=== PATIENT | female | born 1955 | race Caucasian/White ===

== ENCOUNTER → 2017-01-22 | Outpatient (CLI) | payer OTHER ==
[~2017-01-22] MED LIST: ESOM20SU PO; HERBS; OXYC-197 PO; OXYCODONE; PRD50T PO; RNT150T PO; VITAMINS; [UNRECOGNIZED DRUG - OTHER]; flexeril PO
--- NOTE | 2017-01-22 17:52 | Diagnostic Imaging Report ---
Bilateral diagnostic mammogram. COMPARISON: 08/26/15. INDICATION: Left breast pain. The current study was also evaluated with a Computer Aided Detection (CAD) system. FINDINGS: There are scattered fibroglandular densities seen. In the upper aspect of the left breast specifically on the true lateral view, there is a 1 cm asymmetry that appears less prominent on the MLO projection with no definite correlate on the CC view. This is evaluated with focal compression view which demonstrates persistent asymmetry. The right breast demonstrates no definite change. IMPRESSION: Upper left breast asymmetry only seen in the true lateral view, persistent on focal compression view. Ultrasound evaluation is pending. ACR BI-RADS Category 0: Incomplete. (Needs additional imaging evaluation). Result letter will be mailed to the patient. Note: At least 10% of breast cancer is not imaged by mammography. Dictated by: Dictated on workstation # [id number]
--- NOTE | 2017-01-22 18:41 | Diagnostic Imaging Report ---
EXAMINATION: Left breast ultrasound. INDICATION: Asymmetry in the upper aspect of the left breast. Breast pain. FINDINGS: The four quadrants and retroareolar region of the left breast were scanned. There is an indeterminate 0.7 x 0.2 x 0.5 cm hypoechoic lobulated lesion, with no shadowing or internal vascularity with color Doppler, identified at the 11 o'clock zone, 7 cm from the nipple. This may explain the asymmetry on mammography. No other lesion is identified in the rest of the left breast tissue. IMPRESSION: Indeterminate 0.7 cm hypoechoic lesion at 11 o'clock zone, 7 cm from the nipple, may correlate with the mammographic asymmetry seen. Followup study at four months with ultrasound and mammogram is an acceptable alternative given the low suspicion and this is the patient's preference. An ultrasound-guided biopsy could also be performed, alternatively. The results were discussed with the patient. ACR BI-RADS Category 3: Probably benign findings. Result letter will be mailed to the patient. Note: At least 10% of breast cancer is not imaged by mammography. Dictated by: Dictated on workstation # [id number]
== END ==
LOC: RAD 13:54
PROVIDERS: ATTEND Family Medicine
DX: N64.4 Mastodynia (principal)
CPT/HCPCS: 77066

== ENCOUNTER → 2017-06-14 | Outpatient (CLI) | payer OTHER ==
--- NOTE | 2017-06-14 19:48 | Diagnostic Imaging Report ---
EXAMINATION: Ultrasound of the left breast. INDICATION: Follow-up exam. FINDINGS: The diagnostic mammogram performed on 01/22/2017 noted an asymmetric density in the superior aspect of the left breast. The ultrasound exam performed on the same day did note a 0.7 x 0.2 x 0.5 cm hypoechoic lobulated lesion in the 11 o'clock position of the breast roughly 7 cm from the nipple. This is felt to be most likely a benign process. On the diagnostic mammogram performed earlier today, there was no evidence for malignancy. On this study, the hypoechoic lesion in the 11 o'clock position of the left breast is no longer visualized. I suspect that this was a cyst which has subsequently resolved. There is no primary or secondary sign of malignancy noted otherwise. IMPRESSION: 1. The suspected cyst in the 11 o'clock position of the left breast seen previously is no longer evident. There is no evidence for malignancy. 2. The patient should have her annual bilateral screening mammogram on schedule in six months for continued evaluation. ACR BI-RADS Category 1: Negative. Dictated by: Dictated on workstation # [id number]
--- NOTE | 2017-06-15 10:04 | Diagnostic Imaging Report ---
Unilateral diagnostic left mammogram. INDICATION: Followup exam. The previous mammogram of 01/22/2017, noted a 1-cm asymmetry in the superior aspect of the left breast on the MLO view. The ultrasound examination of this area performed on the same day noted a 0.7-cm hypoechoic lesion in the 11 o'clock position. This finding was felt to be secondary to a benign process. On this exam the area of increased density in the superior aspect of the left breast on the MLO view is much less conspicuous. The overall appearance of the left breast itself has not changed adversely. There is no primary or secondary sign of malignancy noted. IMPRESSION: There is no evidence for malignancy. Ultrasound is pending for further study. ACR BI-RADS Category 0: Incomplete. (Needs additional imaging evaluation). Result letter will be mailed to the patient. Note: At least 10% of breast cancer is not imaged by mammography. Dictated by: Dictated on workstation # [id number]
== END ==
LOC: RAD 13:51
PROVIDERS: ATTEND Nurse Practitioner Family
DX: R92.8 Other abnormal and inconclusive findings on diagnostic imaging of breast (principal)
CPT/HCPCS: 76641

== ENCOUNTER → 2017-07-25 | Outpatient (CLI) | payer OTHER ==
--- NOTE | 2017-07-25 17:57 | Diagnostic Imaging Report ---
TECHNIQUE: Multiplanar, multisequence non contrast-enhanced MRI of the left lower extremity was accomplished. INDICATION: No prior history of surgery. Patient has left posterior ankle pain with no known injury. Possible Achilles tendon injury. Prior history of right Achilles injury and surgery. EXAMINATION: MRI of the left lower extremity, 07/25/2017. FINDINGS: There is marked diffuse enlargement of the Achilles tendon just posterior to the level of the posterior malleolus. Internal areas of high signal within the medial aspect of the Achilles tendon at and above the level of the posterior malleolus also noted. These are somewhat linear in appearance and likely represent a focal intrasubstance partial tear. No discontinuity is appreciated. There is underlying edema throughout Kager's fat pad which could be reactive. There is a small amount of fluid in the retrocalcaneal bursa. There is also fluid within the posterior subtalar joint. Plantar fascia is intact. The peroneal tendons are also intact. The flexor and extensor tendons appear unremarkable. The anterior talofibular ligament is intact. The anterior and posterior tibiofibular ligaments are also intact. The deltoid ligament appears unremarkable. Edema along the visualized distal flexor hallucis longus muscle is noted which is a nonspecific finding, perhaps reactive or due to mild focal strain or myositis. The osseous structures demonstrate no acute abnormalities. IMPRESSION: 1. Diffuse fusiform enlargement of the distal Achilles tendon with internal areas of high signal, likely due to a small intrasubstance tear superimposed upon tendinosis. Followup is recommended to assure complete resolution of these findings and exclude any underlying lesions felt to be unlikely but should be followed. 2. Likely reactive retrocalcaneal bursal fluid perhaps due to bursitis as well as edema within Kager's fat pad. 3. Ligaments and tendons otherwise intact and unremarkable. Other findings as above. Dictated by: Dictated on workstation # [id number]
== END ==
LOC: RAD 10:04
PROVIDERS: ATTEND Orthopaedic Surgery
DX: M76.62 Achilles tendinitis, left leg (principal)
CPT/HCPCS: 73721

== ENCOUNTER 2018-06-27 13:24 | Outpatient (RCR) | payer OTHER ==
[~2018-06-27 13:24] MED LIST changes: -OXYC-197 PO; +OXYC1TAB87 PO
== END 2018-07-07 | disposition home or self-care (01) ==
PROVIDERS: ATTEND Nurse Practitioner Family
DX: M19.91 Primary osteoarthritis, unspecified site (principal); M51.27 Other intervertebral disc displacement, lumbosacral region

== ENCOUNTER → 2018-08-26 | Outpatient (CLI) | payer OTHER ==
--- NOTE | 2018-08-26 21:54 | Diagnostic Imaging Report ---
PROCEDURE: US Thyroid. TECHNIQUE: Multiple real-time grayscale images were obtained of the thyroid in various projections. INDICATION: Left neck mass. Thyroid ultrasound. Right lobe of thyroid measures 3.2 x 2.2 x 1.6 cm. Left lobe measures 4.1 x 1.8 x 1.5 cm. There are no masses seen in either thyroid. The thyroid has heterogeneous echotexture that could be due to thyroiditis. Survey of the neck does not show any pathologic masses or fluid collections. IMPRESSION: Abnormal echotexture of the thyroid could be due to thyroiditis. There is no discrete mass seen in the thyroid or neck. Dictated by: Dictated on workstation # [id number]
== END ==
LOC: RAD 15:00
PROVIDERS: ATTEND Nurse Practitioner Family
DX: E01.0 Iodine-deficiency related diffuse (endemic) goiter (principal)
CPT/HCPCS: 76536

== ENCOUNTER → 2018-10-07 | Outpatient (RCR) | payer OTHER | END | disposition home or self-care (01) | PROVIDERS: ATTEND Nurse Practitioner Family | DX: M19.91 Primary osteoarthritis, unspecified site (principal); M51.27 Other intervertebral disc displacement, lumbosacral region ==

== ENCOUNTER → 2018-11-06 | Outpatient (CLI) | payer OTHER ==
--- NOTE | 2018-11-06 19:10 | Diagnostic Imaging Report ---
INDICATION: Screening. EXAMINATION: Digital mammogram bilateral screening with 3-D tomosynthesis. Study was compared to prior exams of 06/14/2017, 01/22/2017 and 08/26/2015. At this time, there are no current complaints. The current study was also evaluated with a Computer Aided Detection (CAD) system. FINDINGS: There are scattered fibroglandular densities in both breasts which could obscure a lesion. Overall, there does not appear to have been any significant change when compared to the prior exam. No primary or secondary sign of malignancy is noted. IMPRESSION: There is no radiographic evidence for malignancy. ACR BI-RADS Category 1: Negative. Result letter will be mailed to the patient. Note: At least 10% of breast cancer is not imaged by mammography. Dictated on workstation # [id number]
== END ==
LOC: RAD 07:58
PROVIDERS: ATTEND Internal Medicine
DX: Z12.31 Encounter for screening mammogram for malignant neoplasm of breast (principal)
CPT/HCPCS: 77067

== ENCOUNTER 2018-11-08 08:30 | Outpatient (RCR) | payer OTHER | END 2018-11-08 10:47 | disposition home or self-care (01) | PROVIDERS: ATTEND Nurse Practitioner Family | DX: M19.91 Primary osteoarthritis, unspecified site (principal); M51.27 Other intervertebral disc displacement, lumbosacral region ==

== ENCOUNTER → 2018-12-31 | Outpatient (CLI) | payer OTHER ==
--- NOTE | 2018-12-31 15:12 | Diagnostic Imaging Report ---
PROCEDURE: MRI lumbar spine. TECHNIQUE: Multiplanar, multisequence MRI of the lumbar spine was performed without contrast. INDICATION: Degenerative disc disease. COMPARISON: Correlation is made with prior MRI of the lumbar spine from 01/31/2016. FINDINGS: Curvature of the lumbar spine is normal. There is minimal anterolisthesis of L4 on L5. Vertebral body heights are maintained. No acute compression fracture is identified. No geographic marrow lesion is identified. Generalized degenerative disc disease is seen with variable disc space narrowing and desiccation. The conus is unremarkable at the L1-2 level. T12-L1: Central canal is patent. There does appear to be moderate neural foramina narrowing on the left with more significant neural foraminal narrowing on the right due to endplate osteophytes. L1-2: Disc/osteophyte complex is seen. Central canal remains patent but there does appear to be significant bilateral neural foramina and lateral recess stenosis. L2-3: Hypertrophic facet changes are noted. There is some trefoil configuration to the sac but the AP dimensions of the thecal sac remain within normal limits. There is bilateral lateral recess stenosis. Significant left and mild right neural foraminal stenosis is seen. L3-4: Hypertrophic facet changes and ligamentous thickening is noted. Broad-based disc/osteophyte complex is present. There is mild narrowing of the canal. There is significant narrowing of the bilateral lateral recesses with moderate bilateral neural foraminal stenosis. L4-5: Bulky hypertrophic facet changes with ligamentous thickening and broad-based disc/osteophyte complexes noted. There is very severe trefoil stenosis to the central canal. Significant bilateral lateral recess stenosis is seen with significant left and moderate right neural foraminal stenosis. L5-S1: Bulky hypertrophic facet changes with ligamentous thickening and broad-based disc/osteophyte complex is noted resulting in severe central canal stenosis. There is also severe bilateral lateral recess stenosis with severe left and mild right neural foraminal stenosis. Paraspinous tissues demonstrate renal sinus cysts bilaterally. IMPRESSION: Multilevel lumbar spondylosis with multilevel central canal, lateral recess and neural foraminal stenosis described level by level above. This is most severe at the L4-5 and L5-S1 levels. No acute compression fracture is seen. Dictated by: Dictated on workstation # [id number]
== END ==
LOC: RAD 13:54
PROVIDERS: ATTEND Nurse Practitioner Family
DX: M48.07 Spinal stenosis, lumbosacral region (principal); M47.817 Spondylosis without myelopathy or radiculopathy, lumbosacral region; M51.36 Other intervertebral disc degeneration, lumbar region; M25.78 Osteophyte, vertebrae
CPT/HCPCS: 72148

== ENCOUNTER → 2019-02-20 | Outpatient (CLI) | payer OTHER ==
--- NOTE | 2019-02-20 14:54 | Diagnostic Imaging Report ---
PROCEDURE: US Bilateral lower extremity arterial. TECHNIQUE: Multiple real-time grayscale images are obtained through both lower extremity arterial systems with color Doppler imaging and color Doppler spectral analysis. INDICATION: Left leg pain and weakness. FINDINGS: Predominantly triphasic waveforms are identified throughout both lower extremity arterial systems from the common femoral to the popliteal arteries. There are biphasic waveforms at the ankle involving the posterior tibial and dorsalis pedis arteries. Velocities are symmetric bilaterally. No velocity elevation or stenosis is seen. There is no occlusion. IMPRESSION: Unremarkable bilateral lower extremity arterial Doppler. Dictated by: Dictated on workstation # [id number]
--- NOTE | 2019-02-20 17:50 | Diagnostic Imaging Report ---
INDICATION: Left leg pain. FINDINGS: Segmental pressures were obtained. Ankle-brachial index on the right is 1.16 and on the left 1.16. IMPRESSION: Normal ankle-brachial indices. Dictated by: Dictated on workstation # [id number]
== END ==
LOC: RAD 11:33
PROVIDERS: ATTEND Neurological Surgery
DX: M62.81 Muscle weakness (generalized) (principal); M79.605 Pain in left leg
CPT/HCPCS: 93922; 93925

== ENCOUNTER → 2020-11-11 | Outpatient (CLI) | payer MEDICARE ==
--- NOTE | 2020-11-11 10:15 | Diagnostic Imaging Report ---
INDICATION: Lateral left breast pain. COMPARISON is made with prior mammograms 11/06/2018 and 01/22/2017. 2-D and 3-D bilateral screening mammography was performed with CAD. Scattered fibroglandular densities are identified bilaterally. No mass or malignant appearing microcalcifications are seen. Axillae are unremarkable. IMPRESSION: BI-RADS 0 No mammographic features suspicious for malignancy are identified. Even so, sonographic interrogation of the area of pain in the lateral left breast is recommended and will be performed today. ACR BI-RADS Category 0: Incomplete. (Needs additional imaging evaluation). Result letter will be mailed to the patient. Note: At least 10% of breast cancer is not imaged by mammography. Dictated by: Dictated on workstation # [id number]
--- NOTE | 2020-11-11 10:41 | Diagnostic Imaging Report ---
INDICATION: Left breast pain. CORRELATION is made with diagnostic mammogram earlier the same day. Sonographic interrogation of the lateral aspect of left breast in the area of pain was performed. No sonographic abnormality is detected. No solid or cystic mass is detected. IMPRESSION: BI-RADS Category 1. No sonographic abnormality is identified. The patient may return to routine annual screening mammography. Dictated by: Dictated on workstation # [id number]
== END ==
LOC: RAD 09:45
PROVIDERS: ATTEND Nurse Practitioner Family
DX: N64.4 Mastodynia (principal)
CPT/HCPCS: 76642; 77066; G0279; 77062

== ENCOUNTER 2021-02-03 08:29 | Outpatient (RCR) | payer MEDICARE, OTHER | END 2021-02-21 | disposition home or self-care (01) | PROVIDERS: ATTEND Nurse Practitioner Family | DX: N81.10 Cystocele, unspecified (principal); N81.6 Rectocele ==

== ENCOUNTER → 2021-11-22 | Outpatient (CLI) | payer MEDICARE, OTHER ==
--- NOTE | 2021-11-22 15:24 | Diagnostic Imaging Report ---
EXAMINATION: Digital mammogram bilateral screening with CAD. INDICATION: Screening. COMPARISON: This study was compared to the prior exams of 11/11/2020, 11/06/2018, 06/14/2017, and 01/22/2017. PERSONAL HISTORY: At this time, there are no current complaints. FINDINGS: There are scattered fibroglandular densities in both breasts which could obscure a lesion. Overall, there does not appear to have been any significant change when compared to the prior exam. No primary or secondary sign of malignancy is noted. IMPRESSION: There is no radiographic evidence for malignancy. ACR BI-RADS Category 1: Negative. Result letter will be mailed to the patient. Note: At least 10% of breast cancer is not imaged by mammography. Dictated by: Dictated on workstation # [id number]
--- NOTE | 2021-11-22 15:32 | Diagnostic Imaging Report ---
INDICATION: Postmenopausal. COMPARISON: 09/23/2015. FINDINGS: The bone mineral density of the spine, hips, and femoral necks was measured. The total T score for the spine is 1.5. On the prior exam, the T score was 2.0. The total T score for the left hip is -0.6 and for the right -0.5. On the prior exam, the respective T-scores were 0.0 and 0.2. The T score for the left femoral neck is -1.2 and for the right -1.4. On the prior study, the respective T scores were -1.0 and -0.8. AP Spine L1-L4: [BMD (g/cm2): 1.375] [T-Score: 1.5] [Z-Score: 1.9] [BMD Previous: 1.442] [BMD % Change: -4.6] LT Hip Neck: [BMD (g/cm2): 0.873] [T-Score: -1.2] [Z-Score: -0.4] LT Hip Total: [BMD (g/cm2):0.934] [T-Score:-0.6] [Z-Score: -0.2] [BMD Previous: 1.007] [BMD % Change: -7.2] RT Hip Neck: [BMD (g/cm2):0.837] [T-Score:-1.4] [Z-Score:-0.7] RT Hip Total: [BMD (g/cm2):0.942] [T-score:-0.5] [Z-Score:-0.1] [BMD Previous:1.035] [BMD % Change:-9.0] *Indicates significant change from prior examination based on 95% confidence level. World Health Organization criteria for BMD interpretation classify patients as Normal (T-score at or above -1.0), Osteopenic (T-score between -1.0 and -2.5) or Osteoporotic (T-score at or below -2.5). LIMITATIONS AND MODIFICATION: None. FRACTURE RISK (FRAX SCORE): The ten year probability of (%): Major Osteoporotic Fracture: [NA] Hip Fracture: [NA] IMPRESSION: 1. The bone mineral density of the spine and hips has decreased but the T score values remain within normal limits. 2. However, there has also been a decrease in the bone mineral density of the femoral necks and these T score values now indicate osteopenia. 3. See below National Osteoporosis Foundation guidelines on when to potentially initiate pharmacologic therapy. Based on the National Osteoporosis Foundation Guidelines, pharmacologic treatment should be initiated in any of the following, unless clinical conditions suggest otherwise: * Any patient with prior fragility fracture of the hip or vertebrae. A spine fracture indicates 5X risk for subsequent spine fracture and 2X risk for subsequent hip fracture. * Osteoporosis (T-score <-2.5). * Postmenopausal women and men age 50 and older with low bone mass/osteopenia (T-score between -1.0 and -2.5) by DXA and 10-year major osteoporotic fracture greater than 20% or a 10-year probability of hip fracture greater than 3%. These fracture risks are supplied above in the FRAX score, if applicable. * Clinician judgement and/or patient preferences may indicate treatment for people with 10-year fracture probabilities above or below these levels. Dictated by: Dictated on workstation # [id number]
== END ==
LOC: RAD 12:45
PROVIDERS: ATTEND Family Medicine
DX: Z12.31 Encounter for screening mammogram for malignant neoplasm of breast (principal); Z78.0 Asymptomatic menopausal state
CPT/HCPCS: 77063; 77067; 77080

== ENCOUNTER 2022-07-04 09:17 | Outpatient (RCR) | payer MEDICARE, OTHER | END 2022-07-07 | disposition home or self-care (01) | PROVIDERS: ATTEND Family Medicine | DX: R26.89 Other abnormalities of gait and mobility (principal) ==

== ENCOUNTER 2022-07-25 10:31 | Outpatient (RCR) | payer MEDICARE, OTHER | END 2022-08-07 | disposition home or self-care (01) | PROVIDERS: ATTEND Family Medicine | DX: R53.1 Weakness (principal); R26.89 Other abnormalities of gait and mobility ==

== ENCOUNTER 2022-09-05 09:11 | Outpatient (RCR) | payer MEDICARE, OTHER | END 2022-09-06 | disposition home or self-care (01) | PROVIDERS: ATTEND Family Medicine | DX: R53.1 Weakness (principal); R26.89 Other abnormalities of gait and mobility ==

== ENCOUNTER 2022-09-08 09:49 | Outpatient (RCR) | payer MEDICARE, OTHER | END 2022-09-08 10:30 | disposition home or self-care (01) | PROVIDERS: ATTEND Family Medicine | DX: R53.1 Weakness (principal); R26.89 Other abnormalities of gait and mobility ==

== ENCOUNTER → 2022-12-18 | Outpatient (CLI) | payer MEDICARE, OTHER ==
--- NOTE | 2022-12-19 14:59 | Diagnostic Imaging Report ---
INDICATION: Routine screening. COMPARISON: 11/22/2021 and 11/11/2020. TECHNIQUE: 2D and 3D bilateral screening mammography was performed with CAD. FINDINGS: Both breasts are heterogeneously dense, limiting the sensitivity of mammography. The parenchymal pattern is stable. No mass or malignant-appearing microcalcifications are seen. The axillae are unremarkable. IMPRESSION: No mammographic features suspicious for malignancy are identified. ACR BI-RADS Category 1: Negative. Result letter will be mailed to the patient. Note: At least 10% of breast cancer is not imaged by mammography. Dictated by: Dictated on workstation # [id number]
== END ==
LOC: RAD 14:10
PROVIDERS: ATTEND Nurse Practitioner Family
DX: Z12.31 Encounter for screening mammogram for malignant neoplasm of breast (principal)
CPT/HCPCS: 77063; 77067

== ENCOUNTER 2023-04-05 13:45 | Outpatient (RCR) | payer MEDICARE, OTHER | END 2023-04-05 15:35 | disposition home or self-care (01) | PROVIDERS: ATTEND Orthopaedic Surgery | DX: M46.1 Sacroiliitis, not elsewhere classified (principal); M47.816 Spondylosis without myelopathy or radiculopathy, lumbar region ==